=== PATIENT | male | born 1975 | race Caucasian/White ===

== ENCOUNTER 2022-02-25 11:03 | Outpatient (CLI) | payer OTHER ==
[~2022-02-25] VITALS: Ht 180.3 cm; Wt 93.4 kg
== END 2022-02-25 16:24 | disposition home or self-care (01) ==
LOC: PREOP 11:03
PROVIDERS: ATTEND Internal Medicine
DX: Z01.818 Encounter for other preprocedural examination (principal)

== ENCOUNTER 2022-03-06 07:04 | Day surgery (SDC) | payer OTHER ==
--- NOTE | 2022-02-25 06:56 | HISTORY AND PHYSICAL ---
DATE OF SERVICE: 03/06/2022 COLONOSCOPY HISTORY AND PHYSICAL HISTORY OF PRESENT ILLNESS: The patient is a 46-year-old white male referred by Dr. Orourke for his first screening colonoscopy. He is deemed to be of average risk as he is not aware of any family history for colon cancer or polyps. He denies bright red blood per rectum, melena, change in bowel habit or change in weight. PAST MEDICAL HISTORY: Noncontributory. MEDICATIONS: He takes no medications. Reports no chronic medical problems. PAST SURGICAL HISTORY: Significant for hemorrhoidectomy number of years ago with no complications postoperatively. FAMILY HISTORY: Pertinent for alcohol use disorder in his parents. He reports no alcohol consumption. 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 No smoking history. No significant alcohol consumption. REVIEW OF SYSTEMS: CONSTITUTIONAL: Denies night sweats, chills, fever, change in weight. PULMONARY: Denies cough, wheezing or shortness of breath. CARDIOVASCULAR: Denies orthopnea, PND, pedal edema or chest discomfort with no history of syncope. GASTROINTESTINAL: No melena, bright red blood per rectum, abdominal pain. Occasional constipation with no diarrhea. No cramping abdominal pain or other type discomfort noted. PHYSICAL EXAMINATION: GENERAL: Reveals a well-appearing white male in no acute distress. VITAL SIGNS: Weight 206.4 pounds, blood pressure 130/80. HEENT: Unremarkable. Sclerae nonicteric. Mallampatti 3 oropharyngeal configuration. No erythema or exudate noted. CHEST: Clear to auscultation. CARDIOVASCULAR: Reveals a regular rate and rhythm without murmur, S3, or S4. ABDOMEN: Soft, supple without mass, organomegaly, or tenderness. EXTREMITIES: Reveal no cyanosis, clubbing or edema. ASSESSMENT AND PLAN: The patient is being set up for her first screening colonoscopy deemed to be of average risk. As noted above, prep instructions were given and questions were answered. Job ID: [id number] DocumentID: [id number] Dictated Date: 02/09/2022 09:14:07 Java Core Developer Date: 02/09/2022 09:26:00 Dictated By: LULU MELISSA MD
[~2022-03-06] VITALS: Ht 180.3 cm; Wt 93.4 kg
[2022-03-06] MEDS ORDERED: LACTATED RINGERS 1,000 ML IV STA (07:08)
[2022-03-06 07:30] VITALS: BP 141/84
[2022-03-06] MEDS ORDERED: PROPOFOL INJECTION 50 ML IV ONE (07:46)
[2022-03-06] MEDS ORDERED: MIDAZOLAM 2 MG/2 ML (VERSED) VIAL ONE (07:46)
--- NOTE | 2022-03-06 08:06 | Pre-Op Note & Conscious Sedat ---
Pre-Operative Progress Note Date H&P Reviewed: Mar 06, 2022 Time H&P Reviewed: 07:45 History & Physical: H&P Reviewed, Patient Examed, No changes noted Pre-Op Diagnosis: screening Conscious Sedation Pre-Proced ASA Score 1 For ASA 3 and 4: Consider anesthesia and medical clearance. Also, for patients with a history of failed moderate sedation consider anesthesia. Airway Lungs Heart ASA score ASA 1: a normal healthy patient ASA 2: a patient with a mild systemic disease (mid diabetes, controlled hypertension, obesity ASA 3: a patient with a severe systemic disease that limits activity (angina, COPD, prior Myocardial infarction) ASA 4: a patient with an incapacitating disease that is a constant threat to life (CHF, renal failure) ASA 5: a moribund patient not expected to survive 24 hrs. (ruptured aneurysm) ASA 6: a declared brain- patient whose organs are being harvested. For emergent operations, add the letter E after the classification Mallampati Classification Grade 2 Sedation Plan Analgesia, Amnesia, Plan communicated to team members, Discussed options with patient/fam, Discussed risks with patient/fam The patient is an appropriate candidate to undergo the planned procedure, sedation, and anesthesia. The patient immediately re-assessed prior to indication. LULU MELISSA MD Mar 06, 2022 08:06
[2022-03-06] MEDS ORDERED: GLYCOPYRROLATE 0.2 MG/ML (ROBINUL) 2 ML VIAL ONE (08:10)
[2022-03-06 08:36] VITALS: BP 107/57
--- NOTE | 2022-03-06 08:37 | Progress Note-Post Operative ---
Post-Procedure Note Physician (s)/Tie Bucker (s) Physician LULU MELISSA MD Pre-Procedure Diagnosis Pre-Procedure Diagnosis: screening Post-Procedure Diagnosis Post-operative diagnosis: Prior to undergoing colonoscopy digital rectal evaluation was performed. There is mild prolapse of the anal canal without any obvious rectal prolapse in the sedated individual for which Valsalva maneuver was not performed. There was no evidence for internal or external hemorrhoids. The prostate is normal in size and a nodular on digital inspection. No abnormalities noted on digital inspection of the anal canal or distal rectal vault. The colonoscope was then inserted into the rectum and under direct visualization advanced to the cecum. The cecum was identified by identification of the ileocecal valve and the cecal strap. Photographic documentation was obtained. Quality the prep was good. Findings: The rectum was unremarkable. Present in the proximal sigmoid colon was a sessile lobulated polyp erythematous but without evidence for ulceration measuring 8 mm in size it was biopsied and ablated and submitted for histopathology with no blood loss. No evidence for diverticular disease was noted. The descending colon and splenic flexure were unremarkable. A 4 mm sessile hyperplastic appearing polyp was noted in the distal transverse colon which was also biopsied and ablated with no blood loss. The remainder the transverse colon hepatic flexure ascending colon and cecum were unremarkable. A/P 1. 1 sessile villous polyp roughly 8 mm in size was removed via hot forceps without blood loss from the proximal sigmoid colon and a hyperplastic appearing polyp was removed via hot forceps in the distal transverse colon with an otherwise normal colonoscopy to the cecum. As long as there is no evidence for dysplasia on evaluation we will be recommending a 1 year surveillance follow-up colonoscopy. The patient does have mild prolapse of the anal canal without evidence for internal or external hemorrhoids and no evidence for anal irritation. CC: LULU Melgoza MD Mar 06, 2022 08:37
[2022-03-06 08:41] VITALS: BP 117/65
[2022-03-06 08:45] VITALS: BP 117/65
[2022-03-06 09:00] VITALS: BP 117/65
--- NOTE | 2022-03-06 10:10 | Anesthesia-General Post-Op ---
MAC Patient Condition Mental Status/LOC: Same as Preop Cardiovascular: Satisfactory Nausea/Vomiting: Absent Respiratory: Satisfactory Pain: Controlled Complications: Absent Post Op Complications Complications None Follow Up Care/Instructions Patient Instructions None needed. Anesthesiology Discharge Order Discharge Order Patient is doing well, no complaints, stable vital signs, no apparent adverse anesthesia problems. No complications reported per nursing. HELIO TOBAR CRNA Mar 06, 2022 10:10
== END 2022-03-06 09:21 | disposition home or self-care (01) ==
LOC: ENDO 07:04
PROVIDERS: ATTEND Internal Medicine
DX: Z12.11 Encounter for screening for malignant neoplasm of colon (principal); D12.5 Benign neoplasm of sigmoid colon; D12.3 Benign neoplasm of transverse colon; Z87.891 Personal history of nicotine dependence